=== PATIENT | female | born 1980 | race Caucasian/White ===

== ENCOUNTER 2019-11-16 15:01 | Inpatient (IN) | payer SELFPAY ==
[~2019-11-16] VITALS: Ht 160 cm; Wt 59.6 kg
[~2019-11-16 15:01] MED LIST: ANAPROX DS550 MG OR; LORTAB 5/3255 MG PO
--- NOTE | 2019-11-16 15:01 | NUR ---
PT AMB TO ISOLATION ROOM WITH MASK IN PLACE
--- NOTE | 2019-11-16 15:17 | NUR ---
PT TAKEN TO ROOM VIA BACK DOE WAY. PT STATES BEING IN DIRECT CONTACT WITH CONFIRMED GARCIA VIRUS. DIRECTOR AND INFECTION CONTROL NOTIFIED. LAB AND RADIOLOGY NOTIFIED
--- NOTE | 2019-11-16 15:35 | NUR ---
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
[2019-11-16 15:48] LABS: HEMATOCRIT 39.1 % (37.0-47.0); HEMOGLOBIN 13.4 g/dl (12.0-16.0); IMMATURE GRANULOCYTES 0.2 % (0.0-5.0); MEAN CORPUSCULAR HGB 34.8 pG CALC (26.0-32.0); MEAN CORPUSCULAR HGB CONC 34.3 g/L CALC (32.0-36.0); NEUT# 5.28 thou/uL (2.00-7.15); RED BLOOD COUNT 3.85 mill/uL (4.20-5.60); RED CELL DISTRI WIDTH 12.2 % (11.5-15.5)
[2019-11-16 15:49] LABS: MEAN CELL VOLUME 101.6 fL CALC (80.0-100.0)
[2019-11-16 16:05] LABS: ALBUMIN 4.2 g/dL (3.2-5.0); ALKALINE PHOSPHATASE 82 u/l (38-126); ANION GAP 11 (6-22 (CALC)); BILIRUBIN, TOTAL 0.4 mg/dL (0.0-1.4); BUN 10 mg/dL (7-17); BUN/CREATININE RATIO 16 (12-20 (CALC)); CARBON DIOXIDE 26 mmol/l (22-30); CHLORIDE 105 mmol/l (95-108); CREATININE 0.6 mg/dL (0.5-1.0); GFR > 60 ML/MIN (>=60 (CALC)); GFR FOR AFR.AMER. > 60 ML/MIN (>=60 (CALC)); LIPASE 63 u/l (23-300); POTASSIUM 3.3 mmol/l (3.5-5.1); SGOT/AST 43 u/l (14-36); SODIUM 139 mmol/l (137-146); TOTAL PROTEIN 7.2 g/dL (6.3-8.2)
--- NOTE | 2019-11-16 16:35 | NUR ---
NASAL AND ORAL SWABS OBTAINED FOR COVID19 PER HEALTH DEPARTMENT RECOMMENDATIONS; PT TOLERATED WELL;
--- NOTE | 2019-11-16 17:10 | NUR ---
DR KEY AT BEDSIDE FOR ASSESSMENT
--- NOTE | 2019-11-16 17:38 | NUR ---
PT TO CT AT THIS TIME
--- NOTE | 2019-11-16 18:20 | NUR ---
DR KEY AT BEDSIDE FOR LP; PT TOLERATED WELL; VSS; PT ADVISED OF CONTINUE WAIT TIME; CALL LIGHT WITHIN REACH; WILL CONTINUE TO MONITOR
--- NOTE | 2019-11-16 18:41 | NUR ---
PT MEDICATED PER MAR FOR HEADACHE RATING 9 OUT OF 10; PT ADVISED OF CONTINUED WAIT TIME FOR RESULTS; PT VERBALIZES UNDERSTANDING; CALL LIGHT WITHIN REACH; WILL CONTINUE TO MONITOR
[2019-11-16] MEDS ORDERED: PENICILLIN VK250 MG PO (18:48)
--- NOTE | 2019-11-16 19:20 | NUR ---
DR KEY AT BEDSIDE TO DISCUSS FINDINGS AND POC
--- NOTE | 2019-11-16 20:20 | NUR ---
Admission Note Report Given to: FELIX VU Transported by: XWhsarthak Stretcher Transported with: X Nurse X Transporter X Patent IV O2 X [employer] Location: ICU X MS2
[2019-11-16 20:25] VITALS: BP 138/85
--- NOTE | 2019-11-16 20:25 | NUR ---
PT ARRIVED TO FLOOR VIA WHEELCHAIR ACCOMPAINED BY ER STAFF. PT WEARING THIS TIME. PT ALERT AND ORIENTED. NO APPARENT RESPIRATORY DISTRESS NOTED. PT DENIES ANY PAIN OR DISCOMFORT. PT ANXIOUS, CALM REASSURANCE EFFECT. PT ORIENTED TO ROOM AND CALL LIGHT SYSTEM WELL ISOLATION PRECAUTIONS. IV SITE APPEARS HEALTHY. HOSPITAL INSURANCE CLERK IN PLACE. DISCUSSED POC. PT VERBALIZED UNDERSTANDING. CALL LIGHT WITHIN REACH. WILL CONTINUE TO MONITOR.
--- NOTE | 2019-11-16 20:57 | NUR ---
MEAL PROVIDED AT THIS TIME. PT REQUESTING SOMETHING FOR SLEEP AND ANXIETY. WILL DISCUSS WITH ENGINEERING DESIGNER PHYSICIAN AND CONTINUE TO MONITOR.
--- NOTE | 2019-11-16 21:19 | NUR ---
ORDERS RECEIEVED FOR SLEEPING PILL AT THIS TIME. PT MEDICATED ORDERED. WILL CONTINUE TO MONITOR. PT INFORMED OF PHONE CALL FROM BOSS/PHYSICIAN. PT STATES SHE DID NOT WANT ANY INFORMATION GIVEN TO ANYONE BUT HER AT THIS TIME. PT STATES SHE WILL SPEAK WITH HER BOSS/PHYSICIAN.
--- NOTE | 2019-11-16 21:37 | NUR ---
IV ACYCLOVIR ORDERED CLARIFIED IV MEDICATION NOT PRESENT IN [facility]. ORDERS RECEIEVED FROM COMPUTER TECHNICIAN PHYSICAN. AUTO SERVICER WILL MEDICATED ON PROFILED IN [facility]. MADE PT AWARE PT ALSO NOW STATES HER BOSS/PHYSICIAN MADE HAVE ACCESS TO INFORMATION PERTAINING TO ADMISSION. INFORMED PT ANYONE CALLING FOR INFORMATION WOULD NEED PASSCODE. PT VERBALIZED UNDERSTANDING.
--- NOTE | 2019-11-16 22:29 | NUR ---
PASSCODE GIVEN TO PT AT THIS TIME TO PROVIDED TO WHOM SHE WISHED INFORMATION BE GIVEN.
[2019-11-17 00:14] VITALS: BP 126/80
--- NOTE | 2019-11-17 00:18 | NUR ---
PT RESTING IN BED WITH EYES CLOSED. NO APPARENT RESPIRATORY DISTRESS NOTED. PT DENIES ANY PAIN OR DISCOMFORT. VS WNL. NO CURRENT WANTS OR NEEDS. CALL LIGHT WITHIN REACH. WILL CONTINUE TO MONITOR.
--- NOTE | 2019-11-17 03:58 | NUR ---
PT RESTING IN BED. NEW GOWN AND LINENS CHANGED AT THIS TIME DUE PT SWEATING. PT AFEBRILE AT THIS TIME. VS WNL. PT DENIES ANY CURRENT WANTS OR NEEDS. REFUSED SHOWER. CALL LIGHT WITHIN REACH. WILL CONTINUE TO MONITOR.
[2019-11-17 04:07] VITALS: BP 130/72
--- NOTE | 2019-11-17 07:15 | NUR ---
REPORT RECEIVED FROM FELIX VU;PT AMBULATING THROUGHOUT ROOM WITH A STEADY GAIT;INTRODUCED SELF TO PT AND POC DISCUSSED;RESPIRATIONS EVEN AND UNLABORED ON RA;PT DENIES ANY CURRENT PAIN OR NEEDS;TELE MONITORING IN PLACE;PT ENCOURAGED TO CALL FOR ASSIATANCE IF NEEDED;FALL PRECAUTIONS IN PLACE WITH CALL LIGHT IN REACH;WILL CONTINUE TO MONITOR
[2019-11-17 08:23] VITALS: BP 118/78
--- NOTE | 2019-11-17 08:23 | NUR ---
PT RESTING IN SEMI FOWLERS POSITION WATCHING TV,A&O X3;VS OBTAINED AND ASSESSMENT COMPLETED;PT REPORTS NECK PAIN AND REQUESTS PAIN MEDICATION,PT TO BE MEDICATED WITH PRN TYLENOL 650MG PO;RESPIRATIONS EVEN AND UNLABORED ON RA,CLEAR LUNG SOUNDS;ABDOMEN SOFT ON PALPATION AND ACTIVE IN ALL 4 QUADRANTS;WEAK PEDAL PULSES;SKIN INTACT;TELE MONITORING IN PLACE;#20G TO LAC FLUSHED AND PATENT,SITE APPEARS HEALTHY;ISOLATION PRECAUTIONS REMAIN IN PLACE AND PT RE-EDUCATED ON PPE EQUITMENT USED BY STAFF MEMBERS;PT DENIES ANY ADDITIONAL NEEDS AND IS ENCOURAGED TO CALL FOR ASSISTANCE IF NEEDED;FALL PRECAUTIONS IN PLACE WITH CALL LIGHT IN REACH;WILL CONTINUE TO MONITOR
[2019-11-17 08:56] LABS: HEMATOCRIT 36.9 % (37.0-47.0); HEMOGLOBIN 12.8 g/dl (12.0-16.0); MEAN CELL VOLUME 100.5 fL CALC (80.0-100.0); MEAN CORPUSCULAR HGB 34.9 pG CALC (26.0-32.0); MEAN CORPUSCULAR HGB CONC 34.7 g/L CALC (32.0-36.0); RED BLOOD COUNT 3.67 mill/uL (4.20-5.60)
[2019-11-17 09:06] LABS: ANION GAP 11 (6-22 (CALC)); BUN 8 mg/dL (7-17); BUN/CREATININE RATIO 18 (12-20 (CALC)); CHLORIDE 110 mmol/l (95-108); CREATININE 0.5 mg/dL (0.5-1.0); GFR > 60 ML/MIN (>=60 (CALC)); GFR FOR AFR.AMER. > 60 ML/MIN (>=60 (CALC)); MAGNESIUM 1.6 mg/dL (1.6-2.3); POTASSIUM 3.7 mmol/l (3.5-5.1); SODIUM 137 mmol/l (137-146)
[2019-11-17 09:29] LABS: CARBON DIOXIDE 20 mmol/l (22-30)
--- NOTE | 2019-11-17 10:36 | NUR ---
AT BEDSIDE DISCUSSING POC WITH PT.
[2019-11-17 12:18] VITALS: BP 122/72
--- NOTE | 2019-11-17 12:20 | NUR ---
PT RESTING IN SEMI FOWLERS POSITION;RESPIRATIONS EVEN AND UNLABORED ON RA;PT DENIES ANY CURRENT PAIN OR NEEDS;TELE MONITORING IN PLACE;ASSESSMENT REMAINS UNCHANGED AT THIS TIME;ENCOURAGED TO CALL FOR ASSISTANCE IF NEEDED;CALL LIGHT IN REACH;WILL CONTINUE TO MONITOR
--- NOTE | 2019-11-17 14:39 | NUR ---
CONSULT PLACED FOR I.D. AT THIS TIME.
--- NOTE | 2019-11-17 14:42 | NUR ---
SPOKE WITH REGARDING PT CARE.PLANS TO D/C PATIENT HOME TODAY AFTER I.D. CONSULT FOR MENMARYITIS.
--- NOTE | 2019-11-17 15:00 | NUR ---
PATIENT TO BE TRANSFERRED TO ICU'S NEGATIVE PRESSURE ROOM BED 1 DUE TO ISSUES WITH THE CURRENT ROOMS PRESSURE SYSTEM.
--- NOTE | 2019-11-17 15:35 | NUR ---
PT TO ICU BED 1 VIA BED WITH MASK IN PLACE. PT IN STABLE CONDITION. PT IS ALERT AND ORIENTED X3. VSS. ORIENTED PT TO ROOM AND UNIT. CALL LIGHT IN REACH. WILL CONTINUE TO MONITOR.
--- NOTE | 2019-11-17 15:35 | NUR ---
PT TRANSPORTED TO ICU BED 1 IN STABLE CONDITION VIA HOSPITAL BED ACCOMPANIED BY AKUA RN WHO MANTAINED PROPER PPE. PT ALSO WORN MASK DURING TRANSPORT. BEDSIDE REPORT GIVEN TO NEDA STOCK.
--- NOTE | 2019-11-17 15:50 | NUR ---
PT AMBULATED SELF TO BATHROOM.
[2019-11-17 16:00] VITALS: BP 133/79
--- NOTE | 2019-11-17 16:40 | NUR ---
PT RESTING IN BED TALKING ON PHONE. RESP ARE EVEN AND UNLABORED. NO DISTRESS NOTED. CALL LIGHT IN REACH. WILL CONTINUE TO MONITOR
[2019-11-17] MEDS ORDERED: AMOX/K CLAV875 M1 PO (16:58)
[2019-11-17 19:45] VITALS: BP 129/74
--- NOTE | 2019-11-17 19:45 | NUR ---
SITTING UP IN BED. RESP EVEN AND UNLABORED. LUNGS CLEAR THROUGHOUT. NO PERIPHERAL EDEMA, PULSES INTACT. SALINE LOCK IN PLACE, SITE BENIGN. MECHANICAL SYSTEMS DESIGNER SHOWS SR. DISCUSSED PLAN OF CARE AND POSSIBLE DC THIS EVENING AFTER INFECTIOUS DISEASE CONSULT. PATIENT VERBALIZES UNDERSTANDING OF TEACHING.
--- NOTE | 2019-11-17 20:00 | NUR ---
TELEMEDICINE ID CONSULT WITH DR GAUTAM COMPLETED. PATIENT IS CLEARED TO GO HOME BY DR BELL AND DR GAUTAM.
--- NOTE | 2019-11-17 20:55 | NUR ---
Discharge instructions given. Patient verbalizes understanding of same. Discharged in stable condition via Ambulatory to Home with staff. All belongings sent with pt.
--- NOTE | 2019-11-29 12:52 | NUR ---
LATE ENTRY- 11/21/19 AT 0822 RECEIVED CALL FROM [facility] WITH RESULTS OF COVID-19 TEST. RESULTS WERE NEGATIVE. NOTIFIED 11/21/19 AT 0830.
== END 2019-11-17 20:55 | disposition home or self-care (01) | DRG 153 ==
LOC: ED 15:01 → ED-I 19:33 → ED 19:46 → MS2 19:47 → ICU 11-17 15:52
PROVIDERS: Family Medicine; Nurse Practitioner Family; ADMIT Internal Medicine; ATTEND Internal Medicine
PROC: 009U3ZX Drainage of Spinal Canal, Percutaneous Approach, Diagnostic (ICD-10-PCS; principal; 2019-11-16)
DX: J32.9 Chronic sinusitis, unspecified (principal); F17.210 Nicotine dependence, cigarettes, uncomplicated; B97.89 Other viral agents as the cause of diseases classified elsewhere; Z20.828 Contact with and (suspected) exposure to other viral communicable diseases
CPT/HCPCS: J0133; Q3014

== ENCOUNTER 2022-08-05 09:57 | Emergency (ER) | payer OTHER ==
[~2022-08-05] VITALS: Ht 160 cm; Wt 60.0 kg
[2022-08-05] VITALS (14 sets, daily range): BP systolic 115–139; BP diastolic 82–96
[~2022-08-05 09:57] MED LIST changes: +AMOX/K CLAV875 M1 PO; +PENICILLIN VK250 MG PO
[2022-08-05] MEDS ORDERED: METHOCARBAMOL500 MG PO (13:47)
[2022-08-05] MEDS ORDERED: NAPROXEN500 MG PO (13:47)
== END 2022-08-05 14:12 | disposition home or self-care (01) | DRG 605 ==
LOC: ED 09:57
DX: S20.212A Contusion of left front wall of thorax, initial encounter (principal); W01.0XXA Fall on same level from slipping, tripping and stumbling without subsequent striking against object, initial encounter; S59.902A Unspecified injury of left elbow, initial encounter